=== PATIENT | female | born 1985 | race Caucasian/White ===

== ENCOUNTER 2021-03-17 23:58 | Emergency (ER) | payer SELFPAY ==
[~2021-03-17] VITALS: Ht 172.7 cm; Wt 59.0 kg
[2021-03-18 00:18] VITALS: BP 128/74
[2021-03-18] MEDS ORDERED: SILVER NITRATE APPLICATOR STICK TOP ONE (01:00)
[2021-03-18 01:10] LABS: HEMATOCRIT 39.2 % (36.0-48.0); HEMOGLOBIN 13.5 g/dL (12.0-16.0); MEAN CORPUSCULAR HEMOGLOBIN 32.3 pg (28.0-32.0); MEAN CORPUSCULAR VOLUME 93.8 fL (81.0-99.0); PLATELET 243 x1000/uL (130-400); RED BLOOD CELL COUNT 4.18 mill/uL (4.2-5.4); RED CELL DISTRIBUTION WIDTH 12.2 % (11.6-14.6)
== END 2021-03-18 02:09 | disposition home or self-care (01) ==
LOC: ER 23:58
DX: R04.0 Epistaxis (principal); R11.0 Nausea; R42 Dizziness and giddiness
CPT/HCPCS: 36415; 85027; 99283; L1830; Z7610